=== PATIENT | female | born 2000 | race Caucasian/White ===

== ENCOUNTER 2020-07-17 19:11 | Emergency (ER) | payer OTHER ==
[2020-07-17 20:11] VITALS: BP 116/77
[2020-07-17] MEDS ORDERED: ONDANSETRON ODT 4 MG TAB (6 TAB/ER DISP) PO PRN (22:14)
--- NOTE | 2020-07-17 22:16 | ER Document Report ---
HPI - HPI Time Seen by Provider: 07/17/20 22:05 Pain Level: 4 Notes: Otherwise healthy 20-year-old female presents emergency department chief complaint of nausea with diarrhea. Patient reports symptoms started 3 days ago. Her had similar symptoms but his only lasted for a few hours. She reports she had 2 episodes of diarrhea today. Denies any fever or chills. Patient denies any concern for COVID-19. She states she has been COVID-19 tested twice and both times she has been negative however this was at least 6 weeks ago. - CONSTITUTIONAL Constitutional: DENIES: Fever, Chills - GASTROINTESTINAL Gastrointestinal: REPORTS: Abdominal Pain, Nausea, Diarrhea - URINARY Urinary: DENIES: Dysuria - REPRODUCTIVE LMP: 07/05/20 Past Medical History - General Information source: Patient - Social History Smoking Status: Never Smoker Frequency of alcohol use: Rare Drug Abuse: None Family History: None Patient has homicidal ideation: No - Medical History Medical History: Negative Surgical Hx: Negative Vertical Provider Document - CONSTITUTIONAL Notes: PHYSICAL EXAMINATION: GENERAL: Well-appearing, well-nourished and in no acute distress. HEAD: Atraumatic, normocephalic. EYES: Pupils equal round extraocular movements intact, conjunctiva are normal. ENT: Nares patent NECK: Normal range of motion LUNGS: No respiratory distress Musculoskeletal: Normal range of motion NEUROLOGICAL: Normal speech, normal gait. PSYCH: Normal mood, normal affect. SKIN: Warm, Dry, normal turgor, no rashes or lesions noted. Course - Re-evaluation Re-evalutation: Patient appears well, nontoxic, vital signs within normal limits. Patient will be COVID-19 swab. She will be given a prescription for Zofran to help with her nausea. Hopefully then she will be able to tolerate oral intake and then she should start feeling better. ED return precautions were discussed. Patient verbalizes understanding and agreement with treatment plan. - Vital Signs Vital signs: Temp Pulse Resp BP Pulse Ox 99.4 F 103 H 19 116/77 99 07/17/20 20:08 07/17/20 22:04 07/17/20 22:04 07/17/20 20:08 07/17/20 22:04 Discharge - Discharge Clinical Impression: Viral illness, Encounter for laboratory testing for COVID-19 virus Condition: Stable Disposition: HOME, SELF-CARE Additional Instructions: You are seen today for viral illness. You were also tested for COVID-19. Please self quarantine until your COVID-19 test results have come back. Drink plenty of fluids. Use the Zofran so that you will be able to start eating and drinking again. Return to the emergency department with any new or worsening concerns. Prescriptions: Ondansetron [Zofran Odt 4 mg Tablet] 1 - 2 tab PO Q4H PRN #15 tab.rapdis PRN Reason: For Nausea/Vomiting Forms: Return to Work
== END 2020-07-17 22:23 | disposition home or self-care (01) ==
LOC: ER 19:11
DX: B34.9 Viral infection, unspecified (principal); R11.0 Nausea; R19.7 Diarrhea, unspecified; R10.9 Unspecified abdominal pain; Z20.828 Contact with and (suspected) exposure to other viral communicable diseases
CPT/HCPCS: 99283; 87635; C9803